=== PATIENT | female | born 1980 | race Caucasian/White ===

== ENCOUNTER 2023-04-07 17:36 | Emergency (ER) | payer OTHER ==
[2023-04-07 17:51] VITALS: BP 137/82; O2SAT 98
[2023-04-07] MEDS ORDERED: AMOX/CLAV 875 MG/125 MG TABLET PO STA (17:56)
--- NOTE | 2023-04-07 17:58 | ED Physician Documentation ---
PD HPI OPHTHO - Stated complaint Stated Complaint: R EYE PX - Chief complaint Chief Complaint: Heent - History obtained from History obtained from: Patient - Additional information Additional information: She was seen a couple weeks ago by my partner for a right upper eyelid infection. Finished Augmentin about 4 days ago and the swelling and pain recurred about 2 days ago. Vision is not affected. 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: Hysterectomy, Breast implants HEENT: Tonsil/Adenoidectomy - Present Medications Home Medications: Ambulatory Orders Medication Instructions Recorded Confirmed Amox/Clav 875/125 [Augmentin] 1 each PO Q12H #20 tablet 04/07/23 - Allergies Allergies/Adverse Reactions: Allergies Allergy/AdvReac Type Severity Reaction Status Date / Time No Known Drug Allergies Allergy Verified 04/07/23 17:44 - Social History Does the pt smoke?: No Smoking Status: Never smoker Does the pt drink ETOH?: Yes Does the pt have substance abuse?: No - Immunizations Immunizations are current?: Yes PD ED PE NORMAL - Vitals Vital signs reviewed: Yes - General General: Alert and oriented X 3, No acute distress - HEENT HEENT: PERRL, EOMI, Other (Mild cellulitis of the upper eyelid and I suspect there is probably a very small stye mid lid. Conjunctive are normal.) - Neuro Neuro: Alert and oriented X 3, Normal speech Results - Vitals Vitals: Vital Signs - 24 hr 04/07/23 17:45 Temperature 37.4 C Heart Rate 78 Respiratory 16 Rate Blood Pressure 137/82 H O2 Saturation 98 Oxygen O2 Source Room air PD Medical Decision Making - ED course ED course: She did well previously with Augmentin and we will restart. Given the suggestion of a stye, ophthalmology follow-up was recommended. Departure - Departure Disposition: 01 Home, Self Care Clinical Impression: Preseptal cellulitis of right eye Condition: Good Record reviewed to determine appropriate education?: Yes Instructions: ED [facility] Follow-Up: Ugo Aguirre MD [Provider Admit Priv/Credential] - Prescriptions: Amox/Clav 875/125 [Augmentin] 1 each PO Q12H #20 tablet Comments: I sent your prescriptions electronically to the [facility] in [place]. As discussed, I suspect you have a small stye and you may need definitive therapy of that for lasting improvement. A process consultant in [place] is listed on this form, call his office for an appointment. Return if worse.
== END 2023-04-07 18:19 | disposition home or self-care (01) ==
LOC: ED 17:36
DX: L03.213 Periorbital cellulitis (principal)
CPT/HCPCS: 99282; 99283; A9270

== ENCOUNTER 2023-05-02 08:00 | Outpatient (CLI) | payer OTHER ==
[2023-05-02 19:47] LABS: CHLAMYDIA TRACHOMATIS DNA NEGATIVE (NEGATIVE); NEISSERIA GONORRHOEAE DNA NEGATIVE (NEGATIVE); TRICHOMONAS VAGINALIS DNA NEGATIVE (NEGATIVE)
[2023-05-02 22:12] LABS: BACTERIAL VAGINOSIS DNA POSITIVE (NEGATIVE); CANDIDA GLABRATA DNA NEGATIVE (NEGATIVE); CANDIDA GROUP DNA NEGATIVE (NEGATIVE); CANDIDA KRUSEI DNA NEGATIVE (NEGATIVE); TRICHOMONAS VAGINALIS DNA NEGATIVE (NEGATIVE)
== END 2023-05-02 23:59 | disposition home or self-care (01) ==
LOC: LAB.WC 08:00
PROVIDERS: ATTEND Obstetrics & Gynecology
DX: N76.1 Subacute and chronic vaginitis (principal)
CPT/HCPCS: 81514; 87491; 87591; 87661

== ENCOUNTER 2023-05-02 14:53 | Outpatient (CLI) | payer OTHER ==
[2023-05-03 06:10] LABS: HIV SCREEN 4TH GENERATION Non Reactive (Non Reactive)
[2023-05-03 08:10] LABS: RPR Non Reactive (Non Reactive)
== END 2023-05-02 14:54 | disposition home or self-care (01) ==
LOC: LAB 14:53
PROVIDERS: ATTEND Obstetrics & Gynecology
DX: N76.1 Subacute and chronic vaginitis (principal)
CPT/HCPCS: 36415; 86592; 87389

== ENCOUNTER 2023-08-21 08:00 | Outpatient (CLI) | payer OTHER ==
[2023-08-21 19:20] LABS: BACTERIAL VAGINOSIS DNA NEGATIVE (NEGATIVE); CANDIDA GLABRATA DNA NEGATIVE (NEGATIVE); CANDIDA GROUP DNA NEGATIVE (NEGATIVE); CANDIDA KRUSEI DNA NEGATIVE (NEGATIVE); TRICHOMONAS VAGINALIS DNA NEGATIVE (NEGATIVE)
== END 2023-08-21 23:59 | disposition home or self-care (01) ==
LOC: LAB.WC 08:00
PROVIDERS: ATTEND Obstetrics & Gynecology
DX: N76.0 Acute vaginitis (principal)
CPT/HCPCS: 81514

== ENCOUNTER 2023-10-04 08:00 | Outpatient (CLI) | payer OTHER ==
[2023-10-04 22:47] LABS: CHLAMYDIA TRACHOMATIS DNA NEGATIVE (NEGATIVE); NEISSERIA GONORRHOEAE DNA NEGATIVE (NEGATIVE)
[2023-10-04 23:52] LABS: BACTERIAL VAGINOSIS DNA NEGATIVE (NEGATIVE); CANDIDA GLABRATA DNA NEGATIVE (NEGATIVE); CANDIDA GROUP DNA NEGATIVE (NEGATIVE); CANDIDA KRUSEI DNA NEGATIVE (NEGATIVE); TRICHOMONAS VAGINALIS DNA NEGATIVE (NEGATIVE)
[2023-10-05 05:12] LABS: HIV SCREEN 4TH GENERATION Non Reactive (Non Reactive)
[2023-10-07 05:08] LABS: HCV AB Non Reactive (Non Reactive)
== END 2023-10-04 08:15 | disposition home or self-care (01) ==
LOC: LAB.N 08:00
PROVIDERS: ATTEND Physician Assistant Medical
DX: N76.0 Acute vaginitis (principal); Z11.3 Encounter for screening for infections with a predominantly sexual mode of transmission
CPT/HCPCS: 36415; 81514; 86592; 86803; 87389; 87491; 87591; 87661

== ENCOUNTER 2023-10-28 07:04 | Outpatient (CLI) | payer OTHER ==
[2023-10-28 12:45] LABS: BASOPHILS % (AUTO) 0.9 %; EOSINOPHILS # (AUTO) 0.1 10^3/uL (0.0-0.7); EOSINOPHILS % (AUTO) 3.2 %; HCT - HEMATOCRIT 45.7 % (37.0-47.0); HGB - HEMOGLOBIN 14.3 g/dL (12.0-16.0); LYMPHOCYTES # (AUTO) 1.5 10^3/uL (1.5-3.5); LYMPHOCYTES % (AUTO) 33.9 %; MEAN CORPUSCULAR HEMOGLOBIN 29.7 pg (27.0-31.0); MEAN CORPUSCULAR HGB CONC 31.3 g/dL (32.0-36.0); MEAN PLATELET VOLUME 11.6 fL (7.9-10.8); MONOCYTES # (AUTO) 0.4 10^3/uL (0.0-1.0); MONOCYTES % (AUTO) 8.8 %; NEUTROPHILS # (AUTO) 2.3 10^3/uL (1.5-6.6); PLT - PLATELET COUNT 186 10^3/uL (130-450); RED BLOOD COUNT 4.81 10^6/uL (4.20-5.40); RED CELL DISTRIBUTION WIDTH 12.3 % (12.0-15.0); WHITE BLOOD COUNT 4.4 x10^3/uL (4.8-10.8)
[2023-10-28 13:25] LABS: ALBUMIN 4.7 g/dL (3.2-5.5); ALBUMIN/GLOBULIN RATIO 2.6 (1.0-2.2); ALKALINE PHOSPHATASE 54 IU/L (42-121); ALT ALANINE AMINOTRANSFERASE 17 IU/L (10-60); AST ASPARTATE AMINOTRANSFERASE 18 IU/L (10-42); BILIRUBIN,TOTAL 1.4 mg/dL (0.2-1.0); BUN - BLOOD UREA NITROGEN 21 mg/dL (6-20); CALCIUM 9.9 mg/dL (8.5-10.3); CARBON DIOXIDE - CO2 28 mmol/L (21-32); CHLORIDE 105 mmol/L (101-111); CHOL/HDL RATIO 2.3 (<4.4); CHOLESTEROL 236 mg/dL; GFR - MDRD 60 (>89); GLUCOSE 97 mg/dL (74-104); HDL CHOLESTEROL 102 mg/dL; LDL CHOLESTEROL,CALCULATED 122 mg/dL; LDL/HDL RATIO 1.2 (<4.4); POTASSIUM 4.1 mmol/L (3.5-4.5); SODIUM 139 mmol/L (135-145); TOTAL PROTEIN 6.5 g/dL (6.4-8.9); TRIGLYCERIDES 61 mg/dL (48-352); VLDL CHOLESTEROL 12 mg/dL
== END 2023-10-28 07:05 | disposition home or self-care (01) ==
LOC: LAB.N 07:04
PROVIDERS: ATTEND Physician Assistant
DX: Z00.00 Encounter for general adult medical examination without abnormal findings (principal); Z13.220 Encounter for screening for lipoid disorders
CPT/HCPCS: 36415; 80053; 80061; 83721; 85025

== ENCOUNTER 2023-10-31 18:39 | Emergency (ER) | payer OTHER ==
[2023-10-31 18:52] VITALS: BP 129/70; O2SAT 98
--- NOTE | 2023-10-31 19:34 | ED Physician Documentation ---
PD HPI LOWER EXT INJURY - Stated complaint Stated Complaint: LT KNEE PX - Chief complaint Chief Complaint: Ext Problem - History obtained from History obtained from: Patient - History of Present Illness PD HPI LOW EXT INJURY LOCATION: Knee Pain level max: 0 Pain level now: 0 Improved by: Rest Worsened by: Moving, Palpating Recently seen: Not recently seen - Additional information Additional information: Is a 43-year-old female presents to the emergency department stating that she injured her left knee after running. She states that this started 3 days ago. She states she last ran about 1 year ago. She states that occasionally if she lands wrong or turns incorrectly on her knee she will feel a sharp pain in the knee. Does not recall any other injuries. Not having pain currently. She states it feels like there is a crunching in her knee. 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, Breast implants HEENT: Tonsil/Adenoidectomy - Present Medications Home Medications: Ambulatory Orders Medication Instructions Recorded Confirmed Azelaic Acid 1 applic TOP BID 10/31/23 10/31/23 metroNIDAZOLE [Metronidazole] 1 applic IV OAW 10/31/23 10/31/23 - Allergies Allergies/Adverse Reactions: Allergies Allergy/AdvReac Type Severity Reaction Status Date / Time No Known Drug Allergies Allergy Verified 10/31/23 18:45 - Social History Does the pt smoke?: No Smoking Status: Never smoker Does the pt drink ETOH?: Yes Does the pt have substance abuse?: No - Immunizations Immunizations are current?: Yes PD ED PE NORMAL - Vitals Vital signs reviewed: Yes - General General: Alert and oriented X 3, No acute distress - HEENT HEENT: Moist mucous membranes - Neck Neck: Supple, no meningeal sign - Derm Derm: Warm and dry - Extremities Extremities: Other (L knee - ACL, MCL, LCL, PCL are intact. There is a small joint effusion. There is no joint line tenderness. Does have pain with meniscus testing.) - Neuro Neuro: Alert and oriented X 3 - Psych Psych: Normal mood, Normal affect Results - Vitals Vitals: Vital Signs - 24 hr 10/31/23 10/31/23 18:41 18:53 Temperature 36.7 C Heart Rate 78 Respiratory 16 16 Rate Blood Pressure 129/70 O2 Saturation 98 Oxygen O2 Source Room air - Rads (name of study) L knee xray Relevant Findings:: See rad report PD Medical Decision Making - ED course Complexity details: reviewed results, re-evaluated patient, considered differential, d/w patient ED course: Left knee x-ray does not show any acute fractures. She has a small joint effusion and possible meniscus injury on physical exam. Recommend NSAIDs, rest, stretching. Recommend that she follow-up with her PCP for possible referral to physical therapy and/or orthopedics. Patient is requesting a note so that she does not have to run in her training class. This was provided for her. Patient counseled regarding signs and symptoms for which I believe and urgent re- evaluation would be necessary. Patient with good understanding of and agreement to plan and is comfortable going home at this time This document was made in part using voice recognition software. While efforts are made to proofread this document, sound alike and grammatical errors may occur. Departure - Departure Disposition: 01 Home, Self Care Clinical Impression: Knee effusion, left Injury of meniscus of left knee Qualifiers: Encounter type: initial encounter Qualified Code(s): S83.8X2A - Sprain of other specified parts of left knee, initial encounter Condition: Good Instructions: ED Meniscal Injury Knee Poss, ED Effusion Knee Follow-Up: Chaparrita Hitchcock PA-C [Primary Care Provider] - [facility] [Provider Group] Comments: Please follow-up with your doctor and/or orthopedics for further care. They may want to send you to physical therapy and/or obtain an MRI of your knee. You can use Motrin or Tylenol as needed for pain. You do have some arthritis in the knee. Forms: PCP List, Activity restrictions Discharge Date/Time: 10/31/23 20:06
--- NOTE | 2023-11-01 00:28 | XRAY Report ---
PROCEDURE: Knee 4+V LT INDICATIONS: knee pain TECHNIQUE: 4 views of the knee(s) were acquired. COMPARISON: None. FINDINGS: Bones: No fractures or dislocations. No suspicious bony lesions. 4 2 mm ossified calcification ad jacent to the fibula appearing chronic. Soft tissues: No knee joint effusion. No suspicious soft tissue calcifications or masses. IMPRESSION: No visualized acute fracture or dislocation. However, occult injury cannot be excluded. Recommend bennett rt interval imaging follow-up in 7-10 days as clinically indicated for additional evaluation. The above findings are concordant with preliminary report. Reviewed by: Nataliia Casarez MD on 11/01/2023 12:27 AM PDT Approved by: Nataliia Casarez MD on 11/01/2023 12:27 AM PDT Station ID: [id number]
== END 2023-10-31 20:06 | disposition home or self-care (01) ==
LOC: ED 18:39
DX: S83.92XA Sprain of unspecified site of left knee, initial encounter (principal); X58.XXXA Exposure to other specified factors, initial encounter; Y93.02 Activity, running
CPT/HCPCS: 99283

== ENCOUNTER 2023-11-17 14:59 | Outpatient (CLI) | payer OTHER ==
--- NOTE | 2023-11-17 16:57 | XRAY Report ---
PROCEDURE: Knee 4+V LT INDICATIONS: KNEE PAIN,LEFT TECHNIQUE: 4 views of the knee(s) were acquired. COMPARISON: None. FINDINGS: Bones: No fractures or dislocations. No suspicious bony lesions. Mild medial and patellofemoral j oint space narrowing with osteophyte formation Soft tissues: No knee joint effusion. No suspicious soft tissue calcifications or masses. IMPRESSION: No acute bony abnormality. Mild osteoarthrosis. Reviewed by: Sabino Desai MD on 11/17/2023 3:56 PM AKCHRISTINA Approved by: Sabino Desai MD on 11/17/2023 3:56 PM AKCHRISTINA Station ID: [id number]
== END 2023-11-17 15:00 | disposition home or self-care (01) ==
LOC: DI 14:59
PROVIDERS: ATTEND Physician Assistant Surgical
DX: M17.12 Unilateral primary osteoarthritis, left knee (principal)

== ENCOUNTER 2023-12-24 10:21 | Outpatient (CLI) | payer OTHER ==
[2023-12-24 12:23] LABS: BASOPHILS % (AUTO) 0.5 %; EOSINOPHILS # (AUTO) 0.1 10^3/uL (0.0-0.7); EOSINOPHILS % (AUTO) 1.7 %; HCT - HEMATOCRIT 42.3 % (37.0-47.0); HGB - HEMOGLOBIN 13.5 g/dL (12.0-16.0); LYMPHOCYTES # (AUTO) 1.5 10^3/uL (1.5-3.5); LYMPHOCYTES % (AUTO) 18.5 %; MEAN CORPUSCULAR HEMOGLOBIN 29.7 pg (27.0-31.0); MEAN CORPUSCULAR HGB CONC 31.9 g/dL (32.0-36.0); MEAN CORPUSCULAR VOLUME 93.2 fL (81.0-99.0); MEAN PLATELET VOLUME 11.7 fL (7.9-10.8); MONOCYTES # (AUTO) 0.6 10^3/uL (0.0-1.0); MONOCYTES % (AUTO) 7.4 %; NEUTROPHILS # (AUTO) 5.6 10^3/uL (1.5-6.6); NEUTROPHILS % (AUTO) 71.6 %; PLT - PLATELET COUNT 207 10^3/uL (130-450); RED BLOOD COUNT 4.54 10^6/uL (4.20-5.40); RED CELL DISTRIBUTION WIDTH 12.3 % (12.0-15.0); WHITE BLOOD COUNT 7.8 x10^3/uL (4.8-10.8)
[2023-12-24 12:57] LABS: ALBUMIN 4.6 g/dL (3.2-5.5); ALBUMIN/GLOBULIN RATIO 2.1 (1.0-2.2); BILIRUBIN,TOTAL 1.5 mg/dL (0.2-1.0); CALCIUM 9.6 mg/dL (8.5-10.3); CREATININE 0.8 mg/dL (0.6-1.3); POTASSIUM 3.8 mmol/L (3.5-4.5); TOTAL PROTEIN 6.8 g/dL (6.4-8.9)
[2023-12-24 12:58] LABS: THYROID STIMULATING HORMONE 2.07 uIU/mL (0.34-5.60)
== END 2023-12-24 10:22 | disposition home or self-care (01) ==
LOC: LAB.N 10:21
PROVIDERS: ATTEND Physician Assistant
DX: R00.2 Palpitations (principal)
CPT/HCPCS: 36415; 80053; 84443; 85025

== ENCOUNTER 2024-01-14 11:27 | Outpatient (CLI) | payer OTHER ==
--- NOTE | 2024-01-14 16:18 | XRAY Report ---
PROCEDURE: Hip w/Pelvis 2-3V LT INDICATIONS: HIP PAIN, LEFT TECHNIQUE: An AP view of the pelvis and a crosstable lateral view of the left hip were acquired. COMPARISON: None. FINDINGS: Bones: No fractures or dislocations. Very mild bilateral hip degenerative arthritis. No suspicious b joe lesions. Soft tissues: No suspicious soft tissue calcifications or masses. IMPRESSION: No acute bony abnormality. Very mild bilateral hip degenerative arthritis. Reviewed by: Caleb Contreras MD on 01/14/2024 4:17 PM PDT Approved by: Caleb Contreras MD on 01/14/2024 4:17 PM PDT Station ID: [id number]
--- NOTE | 2024-01-14 16:20 | XRAY Report ---
PROCEDURE: Knee 4+V LT INDICATIONS: KNEE PAIN, LEFT TECHNIQUE: 4 views of the knee(s) were acquired. COMPARISON: 11/17/2023. FINDINGS: Bones: No fractures or dislocations. Stable findings. Medial compartment and patellofemoral compartm ent osteophytes. Mild medial compartment joint space loss. No suspicious bony lesions. Soft tissues: No knee joint effusion. No suspicious soft tissue calcifications or masses. IMPRESSION: No acute bony abnormality. Mild degenerative change is stable on short-term follow-up. Reviewed by: Caleb Contreras MD on 01/14/2024 4:18 PM PDT Approved by: Caleb Contreras MD on 01/14/2024 4:18 PM PDT Station ID: [id number]
== END 2024-01-14 11:28 | disposition home or self-care (01) ==
LOC: DI.N 11:27
PROVIDERS: ATTEND Physician Assistant Surgical
DX: M16.12 Unilateral primary osteoarthritis, left hip (principal); M17.12 Unilateral primary osteoarthritis, left knee

== ENCOUNTER 2024-01-31 07:30 | Outpatient (CLI) | payer OTHER ==
--- NOTE | 2024-01-31 15:41 | MRI Report ---
PROCEDURE: Knee LT WO INDICATIONS: INTERNAL DERANGEMENT L KNEE TECHNIQUE: Noncontrast sagittal PD fast spin echo and T2 fast spin echo with fat saturation, sagittal 3-D gradie nt sequence with fat saturation; coronal T1 spin echo and PD fast spin echo with fat saturation, and axial PD fast spin echo with fat saturation through the knee. COMPARISON: Left knee x-ray 01/14/2024 FINDINGS: Image quality: Excellent. Bones: There is a small 1.2 cm bone island in the posterior-proximal tibial diaphysis. A small linear focus of subchondral marrow edema is present at the central-lateral patellar facet (09/05-) at the tom perior patella (12/17) with a corresponding T1 hypointense line (10/18). Additional foci of subchondral marrow edema are present at the anterior-lateral femoral condyle (12/20). The bone marrow signal is o therwise normal. There is no acute fracture or dislocation. Joints: There is no significant knee joint effusion. There is mild knee osteoarthritis. Stoll's cyst: None. Menisci: The medial meniscus is normal. The lateral meniscus is normal. The posterior root attachment s are normal. Cruciate ligaments: The anterior cruciate ligament is normal. The posterior cruciate ligament is norm al. Collateral ligaments: The medial collateral ligament complex is normal. The lateral collateral ligame nt complex is normal. Popliteus Muscle/Tendon: The popliteus muscle and tendon are normal. Extensor mechanism: The quadriceps tendon is normal. The patellar tendon is normal. The medial and la teral patellar retinacular attachments are normal. A small amount of edema is present in the lateral aspect of the infrapatellar Hoffa's fat-pad (09/13). Articular cartilage: Deep, partial-thickness chondral fissuring and surface fibrillation is present a t the lateral patellofemoral compartment (09/06-12). Other: No other acute findings. IMPRESSION: 1.Subacute, healing, nondisplaced fracture at the superior pole of the patella. Please correlate for a history of preceding trauma. 2.Mild patellofemoral osteoarthritis with associated articular cartilage damage. 3. Mild edema in the lateral aspect of the infrapatellar Hoffa's fat pad, which can be seen in the se tting of lateral fat pad friction syndrome. Reviewed by: Florian Brown MD on 01/31/2024 3:40 PM PDT Approved by: Florian Brown MD on 01/31/2024 3:40 PM PDT Station ID: [id number]
== END 2024-01-31 07:31 | disposition home or self-care (01) ==
LOC: DI 07:30
PROVIDERS: ATTEND Physician Assistant Surgical
DX: M23.92 Unspecified internal derangement of left knee (principal); S82.002D Unspecified fracture of left patella, subsequent encounter for closed fracture with routine healing; M17.12 Unilateral primary osteoarthritis, left knee; M22.42 Chondromalacia patellae, left knee; M79.4 Hypertrophy of (infrapatellar) fat pad